=== PATIENT | male | born 1960 | race Hispanic/Latino ===

== ENCOUNTER → 2018-02-15 | Outpatient (CLI) | payer BC ==
[~2018-02-15] MED LIST: AEC81 PO; METO-391 PO; ROSU20TA PO
== END | disposition home or self-care (01) ==
LOC: RAH 08:42
PROVIDERS: ATTEND Internal Medicine Cardiovascular Disease
DX: I10 Essential (primary) hypertension (principal); I25.10 Atherosclerotic heart disease of native coronary artery without angina pectoris
CPT/HCPCS: 78452; 93017; A9500 ×2

== ENCOUNTER → 2020-08-17 | Outpatient (CLI) | payer BC ==
[~2020-08-17] MED LIST changes: -ROSU20TA PO; +ROSU20TA23 PO
== END | disposition home or self-care (01) ==
LOC: RAH 12:52
PROVIDERS: ATTEND Internal Medicine
DX: M47.816 Spondylosis without myelopathy or radiculopathy, lumbar region (principal); M54.5 Low back pain; M51.36 Other intervertebral disc degeneration, lumbar region; M48.061 Spinal stenosis, lumbar region without neurogenic claudication
CPT/HCPCS: 72148

== ENCOUNTER → 2020-08-23 | Outpatient (CLI) | payer BC ==
[2020-08-23] MEDS: REGADENOSON 0.4 MG/5 ML PF SYG IVP SCH (11:38)
== END | disposition home or self-care (01) ==
LOC: SHCH 08:08
PROVIDERS: ATTEND Internal Medicine Cardiovascular Disease
DX: I25.10 Atherosclerotic heart disease of native coronary artery without angina pectoris (principal)
CPT/HCPCS: 78452; 93017; 96374; A9500 ×2; J2785

== ENCOUNTER 2024-05-19 08:15 | Observation (INO) | payer OTHER ==
[2024-05-17 10:51] LABS: BASOPHILS # (AUTO) 0.04 K/uL (0.00-0.20); BASOPHILS % (AUTO) 0.6 % (0.0-5.0); EOSINOPHILS # (AUTO) 0.28 K/uL (0.00-0.70); EOSINOPHILS % (AUTO) 4.4 % (0.0-8.0); IMMATURE GRANULOCYTE ABSOLUTE 0.02 K/uL (0-1); LYMPHOCYTES # (AUTO) 1.7 K/uL (1.0-4.8); LYMPHOCYTES % (AUTO) 26.1 % (21.0-51.0); MEAN CORPUSCULAR HEMOGLOBIN 28.5 pg (27.0-33.0); MEAN CORPUSCULAR HGB CONC 33.5 g/dL (32.0-36.0); MONOCYTES # (AUTO) 0.3 K/uL (0.1-1.0); MONOCYTES % (AUTO) 5.2 % (3.0-13.0); NEUTROPHILS % (AUTO) 63.4 % (40.0-77.0); PLATELET COUNT (AUTO) 197 K/uL (130-400); RED BLOOD CELL COUNT(AUTO) 5.41 MIL/uL (4.50-6.20); RED CELL DISTRIBUTION WIDTH 13.1 % (11.0-15.5); WHITE BLOOD COUNT (AUTO) 6.3 K/uL (4.8-10.8)
[2024-05-17 11:00] VITALS: BP 197/98; PULSE 67; RESP 16
[2024-05-17 11:01] LABS: CREATININE 0.8 mg/dL (0.5-1.3)
[2024-05-19] VITALS (26 sets, daily range): BP systolic 124–161; BP diastolic 66–100; PULSE 70–100; RESP 18–20; O2SAT 96–97
[~2024-05-19] VITALS: Ht 175.3 cm; Wt 88.3 kg
[2024-05-19] MEDS: CEFAZOLIN SODIUM 2 GM VIAL ONE (08:07)
[~2024-05-19 08:15] MED LIST changes: +ESOM40CA66 PO; -METO-391 PO
[2024-05-19] MEDS ORDERED: BUPIVACAINE/PF 0.5% 30ML VIAL ONE (09:33)
[2024-05-19] MEDS ORDERED: MIDAZOLAM HCL 1 MG/ML 2ML VIAL ONE (10:11)
[2024-05-19] MEDS ORDERED: ROPIVACAINE 0.5% 5MG/ML 30ML ONE (10:16)
[2024-05-19] MEDS: CEFAZOLIN SODIUM 2 GM VIAL IVPB ONE (10:19)
[2024-05-19] MEDS ORDERED: SUCCINYLCHOLINE CHLORIDE 20 MG/ML 10 ML VIAL ONE (10:19)
[2024-05-19] MEDS ORDERED: LIDOCAINE PF 100MG/5ML (2%) SYRINGE 5ML ONE (10:19)
[2024-05-19] MEDS ORDERED: ROCURONIUM BROMIDE 10MG/1ML 5ML VL ONE ×2 (10:19→10:55)
[2024-05-19] MEDS ORDERED: PROPOFOL 10 MG/ML 20ML VIAL IV ONE (10:19)
[2024-05-19] MEDS ORDERED: FENTANYL CITRATE PF 50 MCG/1 ML 2ML VIAL ONE (10:20)
[2024-05-19] MEDS: LACTATED RINGERS 1000ML 1,000 ML IV ONE (10:32)
[2024-05-19] MEDS ORDERED: HYDRALAZINE 20MG/ML VIAL ONE (11:04)
[2024-05-19] MEDS ORDERED: MEPERIDINE-PF 25 MG/ML SYG ONE (12:00)
[2024-05-19] MEDS ORDERED: KETOROLAC 30MG VIAL (30MG/ML) IV PRN (12:00)
[2024-05-19] MEDS ORDERED: HYDROCODONE/ACETAMINOPHEN 7.5/325 MG 15 ML UDCUP PO PRN (12:00)
[2024-05-19] MEDS ORDERED: PROCHLORPERAZINE 10MG/2ML INJ IV PRN (12:00)
[2024-05-19] MEDS ORDERED: HYDROMORPHONE 1 MG INJ IVP PRN (12:00)
[2024-05-19] MEDS: LACTATED RINGERS 1000ML 1,000 ML IV SCH (12:00)
[2024-05-19] MEDS ORDERED: ONDANSETRON 4MG INJ IVP PRN (12:00)
[2024-05-19] MEDS: ONDANSETRON 4MG INJ ONE (12:49)
[2024-05-19] MEDS: MEPERIDINE-PF 25 MG/ML SYG ONE (12:50)
[2024-05-19] MEDS: FAMOTIDINE 20MG VIAL IV SCH (21:07)
[2024-05-20] VITALS (7 sets, daily range): BP systolic 147–176; BP diastolic 78–92; PULSE 72–81; RESP 16–20; O2SAT 95–98
[2024-05-20] MEDS: ENOXAPARIN SODIUM 30 MG/0.3 ML SQ SCH (00:06)
[2024-05-20] MEDS ORDERED: HYDROMORPHONE 0.5 MG SYG (0.5MG/0.5ML) IVP PRN (12:30)
[2024-05-20] MEDS ORDERED: KETOROLAC 15MG/ML VIAL (15MG/ML) IV PRN (12:30)
[2024-05-20] MEDS: HYDRALAZINE 20MG/ML VIAL IV PRN (16:59)
== END 2024-05-20 17:35 | disposition home or self-care (01) ==
LOC: DAH 08:15 → INTOOBSV 08:16 → DAHIP 08:16 → DAH 08:16 → 3DH 13:29
PROVIDERS: ADMIT Surgery; ATTEND Surgery
DX: K44.9 Diaphragmatic hernia without obstruction or gangrene (principal); K22.70 Barrett's esophagus without dysplasia; E78.5 Hyperlipidemia, unspecified; I25.10 Atherosclerotic heart disease of native coronary artery without angina pectoris; I10 Essential (primary) hypertension; D50.9 Iron deficiency anemia, unspecified; Z79.899 Other long term (current) drug therapy
CPT/HCPCS: 80048; 85025; 86850; 86900; 86901; 36415; 93005; 43282; 96374; 96376; 96372; 96375; 97161; 97116; A6260; A4663; A4215 ×2; J7120; J3490 ×4; J3010; J0330; J2001; J0360 ×3; J1650 ×2; J2250; J2704; J2405; J0665 ×2; J2175 ×2; J2795; J0690 ×2; G0168; C1781; A4930; A4223; A4222; A4221; A4600; G0378 ×7; 43235; G8980-CI; G8983-CI